=== PATIENT | male | born 1995 | race Caucasian/White ===

== ENCOUNTER 2016-11-19 02:46 | Emergency (ER) | payer BC ==
[~2016-11-19] VITALS: Ht 188 cm; Wt 83.1 kg
--- NOTE | 2016-11-19 02:55 | EMERGENCY ROOM VISIT NOTE ---
History Report prepared by Scribe: Gilbert Agrawal Under the Supervision of: Dr. Chriss Rodriguez M.D. First contact with patient: 02:46 Chief Complaint: ALCOHOL OVERDOSE Stated Complaint: ALCOHOL OVERDOSE History of Present Illness The patient is a 20 year old male who presents to the Emergency Room with complaints of alcohol overdose occurring tonight. As per EMS, he was found on a patch of ice near [place] and [place]. There is no known trauma. HPI is limited secondary to alcohol overdose. Source of History: patient History Limited By: other (alcohol overdose) Onset: tonight Position: other (global) Review of Systems ROS is limited secondary to alcohol overdose. Past Medical & Surgical Medical Problems: (1) No Known Active Medical Problems Family History Patient reports no known family medical history. Social History Alcohol Use: occasionally Occupation Status: [employer] student Current/Historical Medications No Active Prescriptions or Reported Meds Allergies Coded Allergies: No Known Allergies (Unverified , 11/19/16) Physical Exam Vital Signs Date Time Temp Pulse Resp B/P Pulse Ox O2 Delivery O2 Flow Rate FiO2 11/19/16 09:58 118 18 98/81 97 11/19/16 09:46 129 15 98/81 98 Room Air 11/19/16 09:00 85 20 99/48 95 Room Air 11/19/16 08:30 82 20 103/48 96 Room Air 11/19/16 08:08 75 18 100/49 99 Room Air 11/19/16 07:39 88 18 91/53 97 Room Air 11/19/16 07:26 94 Room Air 11/19/16 07:25 79 14 88/47 94 Room Air 11/19/16 06:14 66 14 97/50 94 Room Air 11/19/16 06:14 66 11/19/16 05:36 69 14 94/55 97 Room Air 11/19/16 05:10 74 14 95/52 98 Nasal Cannula 4.0 11/19/16 04:20 76 14 93/39 99 Nasal Cannula 2.0 11/19/16 03:24 66 14 97/51 99 Nasal Cannula 4.0 11/19/16 03:06 85 Nasal Cannula 4.0 11/19/16 03:04 36.5 71 14 101/63 100 Room Air 11/19/16 03:00 68 Physical Exam GENERAL: Patient is heavily intoxicated. Smells of alcohol. Covered in vomit. Well appearing and in no acute distress. HEAD: No evidence of Trauma. AT/NC EYES: Injected conjunctiva. Normal EOM. Pupils equal/reactive. ENT: Mucous membranes moist, no nasal congestion, . NECK: No step-offs, no adenopathy, no meningismus, trachea is midline. LUNGS: No dyspnea. Clear to auscultation and equal bilaterally. No wheeze, no rhonchi. HEART: Regular rate and rhythm. No murmurs, rubs, gallops appreciated. ABDOMEN: Soft, nontender, bowel sounds positive, no masses appreciated, no peritonitis. BACK: No midline tenderness, no CVA tenderness EXTREMITIES: Normal motion all extremities, no cyanosis, no edema. NEUROLOGIC: Intoxicated. Slurred speech. Barely knows his own name. No acute motor or sensory deficits, no focal weakness, cranial nerves grossly intact. SKIN: No rash, no jaundice, no diaphoresis. Medical Decision & Procedures Laboratory Results 11/19/16 02:55 Test 11/19/16 02:55 Anion Gap 12.0 mmol/L (3-11) Est Creatinine Clear Calc Drug Dose 124.6 ml/min Estimated GFR () 111.4 Estimated GFR (Non- 96.1 BUN/Creatinine Ratio 16.5 (10-20) Calcium Level 8.4 mg/dl (8.5-10.1) Ethyl Alcohol mg/dL 329.0 mg/dl (0-3) Laboratory results as reviewed by me. ED Course 0246: The patient was evaluated in room A09B. A complete history and physical exam was performed. 0310: The patient is asleep and in no distress. 0347: The patient is sleeping. 0523: He is sleeping soundly. The patient will be discharged in a few hours. Medical Decision Differential: Alcohol Intoxication, Drug Intoxication, Electrolyte Abnormality, Trauma, Intracranial Event, Toxicological, Excited Delirium, Serotonin Syndrome , amongst other pathologies entertained. 20 yr old intoxicated male brought in by EMS after being found heavily intoxicated unable to get [place]. Patient with no evidence nor history for trauma. Initially vomiting profusely though no difficulty breathing and lungs are clear. Protecting airway and breathing comfortably throughout ED stay. EtOH positive. Monitored and discharged when awake, alert , oriented and denies any complaints. Impression Primary Impression: Alcohol abuse Additional Impression: Alcohol intoxication Scribe Attestation The scribe's documentation has been prepared under my direction and personally reviewed by me in its entirety. I confirm that the note above accurately reflects all work, treatment, procedures, and medical decision making performed by me. Departure Information Dispostion Home / Self-Care Prescriptions No Active Prescriptions or Reported Meds Referrals [facility] Forms HOME CARE DOCUMENTATION FORM, IMPORTANT VISIT INFORMATION Patient Instructions A Signature Page, Alcohol Intoxication - [facility], My [facility] Health Problem Qualifiers Additional Impression: Alcohol intoxication Complication of substance-induced condition: uncomplicated Qualified Codes: F10.120 - Alcohol abuse with intoxication, uncomplicated
[2016-11-19 03:04] VITALS: TEMP 36.5; Ht 188 cm; Wt 83.1 kg
[2016-11-19 03:35] LABS: CREATININE 1.1 mg/dl (0.60-1.40)
[2016-11-19 03:36] LABS: BUN/CREATININE RATIO 16.5 (10-20); CALCIUM 8.4 mg/dl (8.5-10.1); POTASSIUM 3.3 mmol/L (3.5-5.1)
[2016-11-19 07:26] VITALS: O2SAT 94
[2016-11-19 09:58] VITALS: BP 98/81; PULSE 118; O2SAT 97
== END 2016-11-19 10:01 | disposition home or self-care (01) ==
LOC: EDBD 02:46 → C.EDA 02:48
DX: F10.120 Alcohol abuse with intoxication, uncomplicated (principal); Y90.8 Blood alcohol level of 240 mg/100 ml or more

== ENCOUNTER 2017-09-25 05:14 | Emergency (ER) | payer BC ==
[~2017-09-25] VITALS: Ht 190.5 cm; Wt 96.0 kg
[2017-09-25 05:29] VITALS: TEMP 36.5; Ht 190.5 cm; Wt 96.0 kg
[2017-09-25 05:50] LABS: BUN/CREATININE RATIO 11.3 (10-20); CALCIUM 8.7 mg/dl (8.5-10.1); CREATININE 1.33 mg/dl (0.60-1.40); POTASSIUM 4.1 mmol/L (3.5-5.1)
[2017-09-25 08:11] VITALS: BP 106/81; PULSE 100; O2SAT 100
--- NOTE | 2017-09-25 23:15 | EMERGENCY ROOM VISIT NOTE ---
History First contact with patient: 05:14 Chief Complaint: ALCOHOL OVERDOSE Stated Complaint: ALCOHOL Nursing Triage Summary: Found in HUB partially exposed lying in chairs. He urinated on himself. Pt is alert and oriented to person, place, and time, but doesn't specifically remember the events. He states he had about 10 drinks tonight, denies drug use. Denies falls or trauma. History of Present Illness The patient is a 21 year old male who presents to the Emergency Room with complaints of alcohol intoxication who was found at the HUB passed out urinating on himself and exposing himself. Patient states he had 10 alcoholic beverages tonight. He states he was walking home and went to the HUB. He does not remember urinating on himself or exposing himself. He was found by the police doing this. This history is obtained from EMS. Patient denies chest pain, dyspnea, drug use, abdominal pain or any Other medical complaints. Review of Systems See HPI for pertinent positives & negatives. A total of 10 systems reviewed and were otherwise negative. Past Medical/Surgical History Medical Problems: (1) No Known Active Medical Problems Family History Patient reports no known family medical history. Social History Smoking Status: Never Smoker Alcohol Use: occasionally Drug Use: none Occupation Status: [employer] student Current/Historical Medications No Active Prescriptions or Reported Meds Physical Exam Vital Signs Date Time Temp Pulse Resp B/P (MAP) Pulse Ox O2 Delivery O2 Flow Rate FiO2 09/25/17 08:11 100 18 106/81 100 Room Air 09/25/17 07:48 96 12 86/60 97 Room Air 09/25/17 06:34 85 13 97 09/25/17 06:19 102 16 100 09/25/17 06:14 104 17 100 09/25/17 05:59 90 12 96 09/25/17 05:44 102 19 98 09/25/17 05:43 107 09/25/17 05:31 Room Air 09/25/17 05:29 36.5 118 16 103/59 98 Room Air 09/25/17 05:29 118 27 103/59 99 Room Air Physical Exam PHYSICAL EXAM: VITALS: Vitals are noted on the nurse's note and reviewed by myself. Vital signs stable. GENERAL: White male with EtOH odor, in no acute distress, nondiaphoretic, well- developed well-nourished. The patient is visibly intoxicated. SKIN: The skin was without obvious lacerations, abrasions, or rashes. There is no tenting of the skin. Capillary reflex less than 2 seconds. HEENT: Normocephalic, atraumatic. PERRLA. EOMI. Conjunctiva with mild injection without icterus. Tympanic membranes without erythema or effusion bilaterally no hemotympanum. External auditory canals are clear. Nares patent bilaterally. No epistaxis. Oropharynx without erythema or exudate. Uvula midline. Oral mucosal moist. No lymphadenopathy. Neck is supple without cervical spine tenderness. HEART: Regular rate and rhythm without murmurs gallops or rubs. Peripheral pulses 2+. LUNGS: Clear to auscultation bilaterally without wheezes, rales or rhonchi. ABDOMEN: Positive bowel sounds x 4. Normal tympanic percussion. Soft, nontender, without masses or organomegaly. MUSCULOSKELETAL: Gross motor function of the upper and lower extremities intact. The patient has a staggering gait. NEUROLOGIC: The patient is visibly intoxicated. Once they were more sober they were alert and oriented to person place and time. Medical Decision & Procedures Laboratory Results 09/25/17 05:22 Test 09/25/17 05:22 Anion Gap 8.0 mmol/L (3-11) Est Creatinine Clear Calc Drug Dose 105.0 ml/min Estimated GFR () 87.9 Estimated GFR (Non- 75.9 BUN/Creatinine Ratio 11.3 (10-20) Calcium Level 8.7 mg/dl (8.5-10.1) Ethyl Alcohol mg/dL 237.0 mg/dl (0-3) ED Course Prior records/ancillary studies reviewed. Triage Nursing notes reviewed. Additional history obtained from EMS. The patient's history was concerning for altered mental status and a possible alcohol overdose. Differential diagnosis: Etiologies such as alcohol intoxication, toxicologic, infection, hypoglycemia, electrolyte abnormalities, cardiac sources, intracerebral event, neurologic, as well as others were entertained. Physical examination: As above. The patient is clinically intoxicated. no trauma noted. ER treatment provided: Monitoring Aspiration precautions The patient was frequently reassessed. Diagnostic interpretation by me: Cardiac monitoring did not reveal any evidence of dysrhythmia. The labs reviewed. The patient's blood alcohol level was 237 mg/dL. The patient's history was reviewed once they were more coherent and their intoxication cleared. The patient states they have been in good health recently and had no medical complaints. The patient admitted to consuming alcohol. No additional concerning findings were noted. The patient complained of no symptoms to suggest assault. This appears to be consistent with an isolated overdose of alcohol. By the evaluation outlined above emergent etiologies such as trauma, infection, hypoglycemia, electrolyte abnormalities, cardiac sources, intracerebral event, neurologic,as well as others were deemed relatively unlikely. The patient was informed about the findings as listed above. The patient was counseled on the dangers of excessive alcohol use. I gave my usual and customary discussion regarding this issue. All questions were answered and the patient was pleased with the treatment. Return instructions were outlined and the patient was discharged in stable condition once their mental status improved and a safe destination was confirmed. Outpatient prescription management: None Referral: The patient was referred back to their primary care physician for follow-up in 2 to 3 days for a recheck of their current condition. Medical Decision As above Medication Reconcilliation Current Medication List: was personally reviewed by me Blood Pressure Screening Patient's blood pressure: Normal blood pressure Impression Primary Impression: Alcohol intoxication Departure Information Dispostion Home / Self-Care Condition GOOD Prescriptions No Active Prescriptions or Reported Meds Referrals No Doctor, Assigned (PCP) Forms HOME CARE DOCUMENTATION FORM, IMPORTANT VISIT INFORMATION Patient Instructions [facility] Additional Instructions Keep well-hydrated. Tylenol every 6 hours as needed for pain (Maximum 3000 mg Tylenol in 24 hr period). Follow up with family doctor and/or health services as needed. No driving for the next 24 hours. Recommend no alcohol for the next 48 hours and avoid binge drinking in the future. Return to ER sooner for chest pain, abdominal pain, worsening signs or symptoms or as needed. Problem Qualifiers Primary Impression: Alcohol intoxication Complication of substance-induced condition: uncomplicated Qualified Codes: F10.920 - Alcohol use, unspecified with intoxication, uncomplicated
== END 2017-09-25 08:22 | disposition home or self-care (01) ==
LOC: EDBD 05:14 → C.EDB 05:14
DX: F10.920 Alcohol use, unspecified with intoxication, uncomplicated (principal); Y90.7 Blood alcohol level of 200-239 mg/100 ml